=== PATIENT | male | born 1980 | race Hispanic/Latino ===

== ENCOUNTER 2025-01-11 22:31 | Emergency (ER) | payer SELFPAY ==
[~2025-01-11] VITALS: Ht 172.7 cm; Wt 117.9 kg
--- NOTE | 2025-01-11 22:35 | ERN ---
ED Note History of Present Illness Stated Complaint: RT EYE INJURY Chief Complaint: Eye Problems Time Seen by MD: 22:34 Time Seen by Midlevel: 22:37 Dictation: Mr. Bales is a 44-year-old male with history of hypertension (untreated) and obesity who presented to the emergency department this evening for evaluation of eye injury. He states that on he was doing some demolition of a trailer; breaking windows and fiberglass when he felt something in his right eye. He noted some irritation and rubbed his eye. He woke in the morning with redness/blood. He still states he has no pain and vision in the right eye is per baseline. He states that he has history (many years) of cataract/blurry vision in that eye. Initial BP hypertensive; 231/128. He states "my blood pressure is always high". He states that he does not take antihypertensive medications. He denies fever, chills, shortness of breath, cough, chest pain, palpitations, edema, abdominal pain, nausea, vomiting, hematemesis, const ipation, diarrhea, melena, hematochezia, dysuria, headache, dizziness, or focal weakness/paresthesia Allergies: Coded Allergies: Penicillins (Unverified Allergy, Unknown, 01/11/25) Emergency Care PIERCING ARTIST: None Home Meds Active Scripts Lisinopril (Lisinopril) 10 Mg Tablet, 1 TAB PO DAILY for 30 Days, #30 TAB 0 Refi lls Prov:BLANCHE MORAN Ahmet [employer] 01/12/25 Past Medical History Past Medical History: Hypertension (untreated), Other (obesity, right eye cataract) Surgical History: None PSYCH History: no pertinent psych hx Social History: Negative, Lives with family RN Note Reviewed/Agreed w/PFSH: Yes Review of System Dictation REVIEW OF SYSTEMS: CONSTITUTIONAL: Patient denies fevers, chills, sweats and weight changes. EYES: Reports chronic blurred vision right eye; states has cataract. Reports suspected FB right eye on but painless. He reports no change in visual acuity. Repots blood in right eye. EARS, NOSE, AND THROAT: No difficulties with hearing. No symptoms of rhinitis or sore throat. CARDIOVASCULAR: Patient denies chest pains, palpitations, orthopnea and paroxysmal nocturnal dyspnea. States "my blood pressure is always high". States he takes no antihypertensive medications. RESPIRATORY: No dyspnea on exertion, no wheezing or cough. GI: No nausea, vomiting, diarrhea, constipation, abdominal pain, hematochezia or melena. : No urinary hesitancy or dribbling. No nocturia or urinary frequency. No abnormal urethral discharge. MUSCULOSKELETAL: No myalgias or arthralgias. NEUROLOGIC: No chronic headaches, no seizures. Patient denies numbness, tingling or weakness. PSYCHIATRIC: Patient denies problems with mood disturbance. No problems with anxiety. ENDOCRINE: No excessive urination or excessive thirst. DERMATOLOGIC: Patient denies any rashes or skin changes. Initial Vital Sign VS Vital Signs Date Time Temp Pulse Resp B/P (MAP) Pulse Ox O2 Delivery O2 Flow Rate FiO2 01/11/25 22:32 97.9 97 20 231/128 98 Room Air 01/11/25 22:42 0 21 Physical Exam Dictation Vital signs: Reviewed. Afebrile Constitutional: No acute distress. Non-toxic appearing. Head/Face: Normocephalic, atraumatic. Eyes: Periorbital areas with no swelling, redness, or edema. Lids and lashes are normal. Sclera anicteric. Pupils equal, round, reactive to light. subconjunctival hemorrhage noted. ENT: Pinnas intact and no signs of trauma or erythema. Ear canals clear and no discharge. TMs no erythema. No nasal discharge or bleeding noted. Oropharynx with no exudate, redness, swelling, masses, exudates, or evidence of obstruction. Uvula midline. Mucous membranes moist. Neck: Trachea midline, no masses palpated, and no cervical lymphadenopathy. No swelling. Supple, full range of motion. Chest/Axilla: No tenderness, no crepitus, no paradoxical movement, no retractions. Hypertensive; 231/128 on arrival. Cardiovascular: Regular rate, regular rhythm, no murmur, no gallops. Symmetric pulses. No peripheral edema. Respiratory: Respirations even and unlabored. Lung sounds clear; no wheezes, rales or rhonchi. Room air SpO2 98% Gastrointestinal: Inspection is normal. No distention is appreciated. Bowel sounds are normal. No mass or organomegaly . There is no tenderness. No rebound. No rigidity. No voluntary or involuntary guarding. No Stauffer's sign. Neurological: Normal speech, gross motor function intact, gross sensory function intact. No focal weakness/Paresthesia. Musculoskeletal/Extremities: All extremities have full range of motion, no pain or tenderness on palpation. Symmetric pulses. Integumentary: Intact. Skin is normal color, warm and dry. Cap refill less than 3 seconds. Results (Laboratory/Radiology) Laboratory/Radiology Laboratory Tests Test 01/11/25 23:29 White Blood Count 10.9 K/uL (4.8-10.8) H Red Blood Count 4.95 MIL/uL (4.50-6.20) Hemoglobin 14.0 g/dL (14.0-18.0) Hematocrit 42.2 % (42-54) Mean Corpuscular Volume 85.3 fL (79-99) Mean Corpuscular Hemoglobin 28.3 pg (27.0-33.0) Mean Corpuscular Hemoglobin Concent 33.2 g/dL (32.0-36.0) Red Cell Distribution Width 14.2 % (11.0-15.5) Platelet Count 224 K/uL (130-400) Mean Platelet Volume 10.9 fL (7.5-10.5) H Immature Granulocyte % (Auto) 0.5 % (0-1) Neutrophils (%) (Auto) 68.3 % (40.0-77.0) Lymphocytes (%) (Auto) 20.4 % (21.0-51.0) L Monocytes (%) (Auto) 9.8 % (3.0-13.0) Eosinophils (%) (Auto) 0.6 % (0.0-8.0) Basophils (%) (Auto) 0.4 % (0.0-5.0) Neutrophils # (Auto) 7.4 K/uL (1.8-7.7) Lymphocytes # (Auto) 2.2 K/uL (1.0-4.8) Monocytes # (Auto) 1.1 K/uL (0.1-1.0) H Eosinophils # (Auto) 0.07 K/uL (0.00-0.70) Basophils # (Auto) 0.04 K/uL (0.00-0.20) Absolute Immature Granulocyte (auto 0.05 K/uL (0-1) Nucleated Red Blood Cells 0.0 % (0.0-0.19) Sodium Level 142 mmol/L (136-145) Potassium Level 3.9 mmol/L (3.5-5.1) Chloride Level 106 mmol/L (101-111) Carbon Dioxide Level 29 mmol/L (21-32) Blood Urea Nitrogen 12 mg/dL (7-18) Creatinine 0.7 mg/dL (0.5-1.3) Glomerular Filtration Rate Calc 118 mL/min (>90) Random Glucose 90 mg/dL (70-105) Total Calcium 9.2 mg/dL (8.5-10.1) ED Course ED Course Orders Procedure Category Date Status Time Visual Acuity Test CPOE 01/11/25 Transmitted (Er) 22:44 Tetanus Antitoxoid LAB 01/11/25 In Process Igg Ab 22:44 Clonidine Hcl 0.1 Mg PHA 01/11/25 Complete Tablet (Catapres 0. 23:00 Clonidine Hcl 0.1 Mg PHA 01/12/25 Complete Tablet (Catapres 0. 00:00 Cbc With Differential LAB 01/12/25 Complete 00:05 Basic Metabolic Panel LAB 01/12/25 Complete 00:05 Current Medications Medications (Trade) Dose Ordered Sig/Erich Route PRN Reason Start Time Stop Time Status Last Admin Dose Admin Clonidine HCl (CATApres 0.1 mg TAB) 0.1 mg ONCE ONCE PO 01/11/25 23:00 01/11/25 23:01 DC 01/11/25 22:50 Clonidine HCl (CATApres 0.1 mg TAB) 0.1 mg ONCE ONCE PO 01/12/25 00:00 01/12/25 00:01 DC 01/12/25 00:18 Vital Signs Date Time Temp Pulse Resp B/P (MAP) Pulse Ox O2 Delivery O2 Flow Rate FiO2 01/12/25 00:18 170/112 01/12/25 00:17 78 16 170/112 98 Room Air* 0 21 01/11/25 22:50 206/130 01/11/25 22:42 97.9 96 17 206/130 98 Room Air* 0 21 01/11/25 22:32 97.9 97 20 231/128 98 Room Air Upon arrival to the ED noted elevated blood pressure reading of 231/128. BP decreased to 170/112 following dose clonidine 0.2 mg. Laboratory findings as noted below. No electrolyte derangement. Renal function normal. Discussed importance of keeping log of blood pressure and adhering to antihypertensive medication regimen. Eye exam consistent with subconjunctival hemorrhage. Remains pain-free with no vision changes. Both pupils are round, equal, and reactive to light. He reported that he has a history of a cataract for many years to the right eye. He has been instructed to follow up Monday at [facility]. He was also given a list of physicians for primary care. Medical Decision Making MDM MDM: Differential diagnosis: Foreign body eye, cellulitis, subconjunctival hemorrhage, hypertensive emergency Rationale: Tests considered and ordered secondary to shared decision making include: Examination Previous outside records reviewed: Old ER visits. Risk of complication and/or morbidity or mortality of patient management: None Medications-Per medication reconciliation Need for hospitalization: Patient does not meet criteria for hospitalization. Need for emergency major/minor surgery: No There are no social concerns with this patient. Prescription drug management: Lisinopril Prescriptions will include symptomatic care Patient's prior external medical records from other ER visits were reviewed by me as indicated. Prior testing and results from previous visits were reviewed. Prior tests were taken into account with medical decision making and resource utilization, independent historian/historians were used to obtain complete medical history. I independently interpreted the test that were performed, results were reviewed by me and considered findings on radiology if ordered. Medical management and examination interpretation discussions were had by me with other qualified healthcare professionals as indicated for the patient's care. DX & DISP Disposition: Discharge Departure Impression: Primary Impression: Subconjunctival hemorrhage of right eye Additional Impression: Hypertension Condition: Stable Scripts Lisinopril (Lisinopril) 10 Mg Tablet 1 TAB PO DAILY for 30 Days, #30 TAB 0 Refills Prov: BLANCHE MORAN [employer] 01/12/25 Additional Instructions: Subconjunctival hemorrhage occurs when a small blood vessel breaks beneath the surface of the eye it can look a color me but is usually homeless and resolves on its own. You may use [id number] artificial tears/lubricating drops if your eyes feel irritated. Monitor your blood pressure (keep log) as high blood pressure can exacerbate this, avoid heavy lifting or straining until cleared. You will need to follow up Monday AM at [facility] Eye: [address] [facility] . You will need to start treating your blood pressure. Start lisinopril 10 mg daily and follow up with a PCP. Referrals: SELF,REFERRAL (PCP) Time of Disposition: 00:02 BLANCHE MORAN NP January 11, 2025 22:35
--- NOTE | 2025-01-11 22:41 | NUR ---
PT CARE ASSUMED AT THIS TIME
[2025-01-11] MEDS: cloNIDine HCL 0.1 MG TABLET PO ONE (22:50)
[2025-01-12] MEDS ORDERED: LISI10TA24 PO (00:03)
[2025-01-12] MEDS: cloNIDine HCL 0.1 MG TABLET PO ONE (00:18)
[2025-01-12 00:33] LABS: BASOPHILS # (AUTO) 0.04 K/uL (0.00-0.20); BASOPHILS % (AUTO) 0.4 % (0.0-5.0); EOSINOPHILS # (AUTO) 0.07 K/uL (0.00-0.70); EOSINOPHILS % (AUTO) 0.6 % (0.0-8.0); HEMATOCRIT 42.2 % (42-54); IMMATURE GRANULOCYTE ABSOLUTE 0.05 K/uL (0-1); LYMPHOCYTES # (AUTO) 2.2 K/uL (1.0-4.8); LYMPHOCYTES % (AUTO) 20.4 % (21.0-51.0); MEAN CORPUSCULAR HEMOGLOBIN 28.3 pg (27.0-33.0); MEAN CORPUSCULAR HGB CONC 33.2 g/dL (32.0-36.0); MEAN CORPUSCULAR VOLUME 85.3 fL (79-99); MONOCYTES # (AUTO) 1.1 K/uL (0.1-1.0); MONOCYTES % (AUTO) 9.8 % (3.0-13.0); NEUTROPHILS # (AUTO) 7.4 K/uL (1.8-7.7); NEUTROPHILS % (AUTO) 68.3 % (40.0-77.0); PLATELET COUNT (AUTO) 224 K/uL (130-400); RED BLOOD CELL COUNT(AUTO) 4.95 MIL/uL (4.50-6.20); RED CELL DISTRIBUTION WIDTH 14.2 % (11.0-15.5); WHITE BLOOD COUNT (AUTO) 10.9 K/uL (4.8-10.8)
[2025-01-12 00:49] LABS: CREATININE 0.7 mg/dL (0.5-1.3); POTASSIUM 3.9 mmol/L (3.5-5.1)
[2025-01-12 01:36] VITALS: BP 173/106; PULSE 71; RESP 17; TEMP 98; O2SAT 98
--- NOTE | 2025-01-12 01:41 | NUR ---
ACUITY TEST RIGHT EYE - 20/70 [id number] EYE - 20/20
== END 2025-01-12 01:45 | disposition home or self-care (01) ==
LOC: EDH 22:31
DX: H11.31 Conjunctival hemorrhage, right eye (principal); I10 Essential (primary) hypertension; E66.9 Obesity, unspecified; Z79.899 Other long term (current) drug therapy; Z88.0 Allergy status to penicillin; Z68.39 Body mass index [BMI] 39.0-39.9, adult
CPT/HCPCS: 36415; 80048; 85025; 86317; 90471; 99283